=== PATIENT | female | born 1945 | race Caucasian/White ===

== ENCOUNTER 2017-10-24 15:04 | Emergency (ER) | payer MEDICARE, OTHER ==
[~2017-10-24 15:04] MED LIST: AMLO5TAB96 PO; HYDR2TAB PO; MOBI15TA PO
[2017-10-24 15:13] VITALS: BP 144/65; PULSE 89; RESP 20; TEMP 98.4; O2SAT 97
[2017-10-24] MEDS ORDERED: HYDR12.57 PO (15:30)
[2017-10-24] MEDS ORDERED: ASPI81TA23 PO (15:30)
[2017-10-24] MEDS ORDERED: AMLO5 PO (15:30)
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
== END 2017-10-24 17:11 | disposition home or self-care (01) ==
LOC: PHEFT 15:04
DX: S16.1XXA Strain of muscle, fascia and tendon at neck level, initial encounter (principal); M51.35 Other intervertebral disc degeneration, thoracolumbar region; M41.9 Scoliosis, unspecified; I10 Essential (primary) hypertension; V43.52XA Car driver injured in collision with other type car in traffic accident, initial encounter; Z79.82 Long term (current) use of aspirin; Z79.899 Other long term (current) drug therapy
CPT/HCPCS: 72100; 72125